=== PATIENT | male | born 1985 | race Caucasian/White ===

== ENCOUNTER 2018-08-22 20:40 | Observation (INO) ==
[2018-08-23] MEDS ORDERED: Acetaminophen 325 MG Tablet PO PRN (03:46)
[2018-08-23] MEDS ORDERED: Haloperidol Inj 5 MG/ML Ampul IV.PUSH PRN (03:46)
[2018-08-23] MEDS: LORazepam 1 MG Tablet PO PRN ×3 (04:31→17:36)
[2018-08-23 06:21] LABS: Chloride 104 meq/L (98-107); Potassium 3.7 meq/L (3.5-5.1); Sodium 140 meq/L (136-145)
[2018-08-23 06:23] LABS: Calcium 8.1 mg/dL (8.5-10.1)
[2018-08-23 06:24] LABS: Anion Gap 9 meq/L (5-15); Blood Urea Nitrogen 12 mg/dL (7-18); Carbon Dioxide 27.4 meq/L (21.0-32.0); Glucose,Random 89 mg/dL (74-106)
[2018-08-23 06:27] LABS: Glomerular Filtration Rate Greater Than 89 mL/min (>89)
[2018-08-23 06:31] LABS: Creatine Kinase 111 U/L (39-308)
[2018-08-23 06:42] LABS: Baso % (Auto) 0.7 % (0.0-2.0); Eos # (Auto) 0.1 th/mm3 (0.0-0.4); Eos % (Auto) 2.5 % (0.0-4.0); Hemoglobin 16.6 gm/dL (13.0-17.0); Lymph # (Auto) 1.3 th/mm3 (1.0-4.8); Lymph % (Auto) 28.7 % (9.0-44.0); Mean Corpuscular HGB Conc 35.3 % (32.0-36.0); Mean Corpuscular Hemoglobin 31.4 pg (27.0-34.0); Mean Corpuscular Volume 88.9 fL (80.0-100.0); Mean Platelet Volume 9.6 fL (7.0-11.0); Mono # (Auto) 0.4 th/mm3 (0.0-0.9); Mono % (Auto) 8.5 % (0.0-8.0); Neut # (Auto) 2.7 th/mm3 (1.8-7.7); Neut % (Auto) 59.6 % (16.0-70.0); Platelet Count 176 th/mm3 (150-450); Red Blood Count 5.29 mil/mm3 (4.50-5.90); Red Cell Distribution Width 13.3 % (11.6-17.2); White Blood Count 4.5 th/mm3 (4.0-11.0)
--- NOTE | 2018-08-23 06:47 | P.HP ---
History of Present Illness Primary Care Physician: UNKNOWN Chief Complaint: Alcohol withdrawal, chest pressure History of Present Illness: 32-year-old male with known history of hypertension, chronic alcohol abuse, tobacco abuse who presented to the hospital because of chest discomfort, possible near syncope. Patient states that he does drink alcohol on a daily basis at least 4-5 beers a day. He does smoke at least 1 pack of cigarettes a day. He states that he tried to quit drinking alcohol and smoking at the same time 2 days ago. Patient states that he was doing okay until yesterday when he started having a plethoric of symptoms to include chest pressure, lightheadedness, dizziness, severe fatigue, nausea, vomiting, shortness of breath, dyspnea. Patient indicates that approximate 9 AM yesterday morning he had an episode where he almost blacked out. He had profound fatigue where he went down to the ground on his knees and he did not have the strength to get back up. He thought it was because of his blood pressure was elevated and he could not go upstairs to get his blood pressure medication. Patient states that he got up and drink to [employer] in order to get through his symptoms. Because of his symptoms he decided to come to the emergency department for evaluation. Upon presentation emergency department patient was found to have mildly elevated blood pressure of 140/102. Patient had initial workup which was unremarkable. Patient denies any syncopal episode or seizure-like activity. However ER records indicates that noted that he possibly had a seizure at home. Patient does not indicate that he has tried to quit alcohol in the past. In reference to the patient's chest pressure, he indicates that it was located through his entire chest felt like a muscle cramp that he needed to work out. Lasted for approximately 10 minutes. Patient agreed with all the symptoms of nausea, vomiting, diaphoresis, shortness of breath, dyspnea, lightheadedness, dizziness. Because of his presentation the ER physician recommended that the patient be observed in the hospital to evaluate his chest pain and monitor for alcohol withdrawal. - Diagnosis (1) Chest pain (2) Alcohol withdrawal Review of Systems All other systems reviewed negative except as stated in HPI Constitutional: Reports body ache(s), Reports chills, Reports fatigue, Reports headache(s) Eyes: Reports blurry vision Cardiovascular: Reports chest pain, Reports shortness of breath Gastrointestinal: Reports nausea, Reports vomiting Musculoskeletal: Reports muscle cramps, Reports muscle weakness Neurologic: Reports dizziness, Reports fainting, Reports memory loss [facility] - History History Provided By: Patient - Medical History Medical History: Medical History (Last Updated 08/23/18 @ 06:52 by FACUNDO Adler) Hypertension (Acute) Alcohol abuse Tobacco abuse - Surgical History Surgical History: Surgical History (Last Updated 08/23/18 @ 06:52 by FACUNDO Adler) No history of previous surgery (Acute) Leg fracture, right - Family History Family History: Family History (Last Updated 08/23/18 @ 06:53 by FACUNDO Adler) Mother Family history of congenital heart disease Family history of diabetes mellitus Mother No problems noted. - Tobacco History Second Hand Smoke Exposure: No Tobacco Use In Past 30 Days: Yes (quit 3 days ago) Smoking Status: Former smoker Tobacco Type: Cigarettes Number of Pack Years (if former smoker): 20 (Quit smoking 2 days ago) - Alcohol History How Often Do You Have a Drink Containing Alcohol: 4 or more times a week - Substance Use History Substance History: Past History - Substance Use Type Marijuana Status: Sustained Remission - Travel History Recent Travel in the [place] Within the Last 8 Weeks: No Recent Travel Out of the Country Within the Last 8 Weeks: No Medications and Allergies Active Medications: Active Medications Acetaminophen (Tylenol) 650 mg PO Q4H PRN PRN Reason: Temp > 100.4 Amlodipine Besylate (Norvasc) 10 mg PO DAILY YANET Flumazenil (Romazecon Inj) 0.2 mg IV.PUSH Q1M PRN PRN Reason: OVERSEDATION Haloperidol Lactate (Haldol Inj) 1 mg IV.PUSH Q15M PRN PRN Reason: for severe agitation Lorazepam (Ativan Inj) 1 mg IV.PUSH Q4H PRN PRN Reason: for CIWA 8-10 Lorazepam (Ativan Inj) 2 mg IV.PUSH Q15M PRN PRN Reason: for CIWA > 20 Lorazepam (Ativan Inj) 2 mg IV.PUSH Q1H PRN PRN Reason: for CIWA 15-20 Lorazepam (Ativan Inj) 2 mg IV.PUSH Q2H PRN PRN Reason: for CIWA 11-14 Lorazepam (Ativan) 1 mg PO Q4H PRN PRN Reason: for CIWA 8-10 Last Admin: 08/23/18 04:31 Dose: 1 mg Lorazepam (Ativan) 2 mg PO Q2H PRN PRN Reason: for CIWA 08-29 Ondansetron HCl (Zofran Inj) 4 mg IV.PUSH Q6H PRN PRN Reason: NAUSEA OR VOMITING Allergies Allergy/AdvReac Type Severity Reaction Status Date / Time oyster extract [Oysters] Allergy Anaphylaxis Verified 08/22/18 20:55 ants Allergy Anaphylaxis Uncoded 07/03/18 19:43 Home Medications Medication Instructions Recorded Confirmed Type amlodipine 10 mg PO DAILY 08/23/18 08/23/18 History Exam Vital signs: Vital Signs 08/23/18 00:52 08/23/18 04:00 08/23/18 04:08 Temperature 96.7 F L 96.7 F L Pulse Rate 84 92 H 87 Respiratory Rate 18 18 Blood Pressure 120/78 121/84 Pulse Oximetry 93 L 94 L Intake & Output 08/22/18 08/22/18 08/23/18 06:59 18:59 06:59 Intake Total 240 / 240 Balance 240 / 240 Weight 88.7 kg Intake: Oral 240 / 240 Other: # Voids 2 Date of Last Bowel Movement 08/22/18 Weight On Admission 87.2 kg Narrative: GENERAL: Well-developed, well-nourished, in no acute distress. alert and orientated HEENT: Head is normocephalic without any lesions or masses noted. Facial features are symmetric. Eyes: Pupils equal round reactive to light. Extraocular muscles are intact. Conjunctivae were clear. Oropharyngeal: Pharynx without any erythema edema. Tongue is midline without deviation. Buccal mucosa is moist without any masses or lesions NECK: Supple without any masses. Trachea midline no deviation. No JVD, no bruits are appreciated CARDIAC: Regular rhythm, regular rate. S1/S2 are heard. No murmurs gallops or rubs. LUNGS: Clear to auscultation bilaterally. No wheeze, rhonchi or rales. No use of accessory muscles on inspiration or expiration. ABDOMEN: Soft, nontender. Nondistended. Bowel sounds heard in all 4 quadrants. No organomegaly or masses. Negative rebound, negative guarding EXTREMITIES: No edema, pulses are equal bilaterally. No cyanosis or clubbing NEUROLOGY: Mood and affect appear appropriate. Cranial nerves II through XII grossly intact. Muscle strength 5/5 in upper and lower extremities bilaterally. Deep tendon reflexes are 2+ in upper and lower extremities bilaterally. SKIN: Patient does have macular papular lesions noted on his left bicep, right axillary area, neck Results - Labs CBC & Chem 7: 08/23/18 05:52 08/23/18 05:52 Labs: Laboratory Results - last 24 hr 08/23/18 08/23/18 05:52 05:52 CBC w Diff Auto diff final WBC 4.5 RBC 5.29 Hgb 16.6 Hct 47.0 MCV 88.9 MCH 31.4 MCHC 35.3 RDW 13.3 Plt Count 176 MPV 9.6 Neut % (Auto) 59.6 Lymph % (Auto) 28.7 Crook % (Auto) 8.5 H Eos % (Auto) 2.5 Baso % (Auto) 0.7 Neut # (Auto) 2.7 Lymph # (Auto) 1.3 Crook # (Auto) 0.4 Eos # (Auto) 0.1 Baso # (Auto) 0.0 WBC Differential . Differential Comment . Sodium 140 Potassium 3.7 Chloride 104 Carbon Dioxide 27.4 Anion Gap 9 BUN 12 Creatinine 0.96 Estimated GFR Greater than 89 Random Glucose 89 Calcium 8.1 L Total Creatine Kinase 111 Troponin I Less than 0.02 L Caprini VTE Risk Assessment Caprini VTE Risk Assessment: No/Low Risk (score <= 1) Caprini Risk Assessment Model: Point Value = 1 Point Value = 2 Point Value = 3 Point Value = 5 Age 41-60 Minor surgery BMI > 25 kg/m2 Swollen legs Varicose veins or History of unexplained or recurrent spontaneous Oral contraceptives or hormone replacement Sepsis (< 1 month) Serious lung disease, including pneumonia (< 1 month) Abnormal pulmonary function Acute myocardial infarction Congestive heart failure (< 1 month) History of inflammatory bowel disease Medical patient at bed rest Age 61-74 Arthroscopic surgery Major open surgery (> 45 min) Laparoscopic surgery (> 45 min) Malignancy Confined to bed (> 72 hours) Immobilizing plaster cast Central venous access Age >= 75 History of VTE Family history of VTE Factor V Leiden Prothrombin [id number] Lupus anticoagulant Anticardiolipin antibodies Elevated serum homocysteine Heparin-induced thrombocytopenia Other congenital or acquired thrombophilia Stroke (< 1 month) Elective arthroplasty Hip, pelvis, or leg fracture Acute spinal cord injury (< 1 month) Prophylaxis Regimen: Total Risk Factor Score Risk Level Prophylaxis Regimen 0-1 Low Early ambulation 2 Moderate Order ONE of the following: *Sequential Compression Device (SCD) *Heparin 5000 units SQ BID 3-4 Higher Order ONE of the following medications: *Heparin 5000 units SQ TID *Enoxaparin/Lovenox 40 mg SQ daily (WT < 150 kg, CrCl > 30 mL/min) *Enoxaparin/Lovenox 30 mg SQ daily (WT < 150 kg, CrCl > 10-29 mL/min) *Enoxaparin/Lovenox 30 mg SQ BID (WT < 150 kg, CrCl > 30 mL/min) AND/OR *Sequential Compression Device (SCD) 5 or more Highest Order ONE of the following medications: *Heparin 5000 units SQ TID (Preferred with Epidurals) *Enoxaparin/Lovenox 40 mg SQ daily (WT < 150 kg, CrCl > 30 mL/min) *Enoxaparin/Lovenox 30 mg SQ daily (WT < 150 kg, CrCl > 10-29 mL/min) *Enoxaparin/Lovenox 30 mg SQ BID (WT < 150 kg, CrCl > 30 mL/min) AND *Sequential Compression Device (SCD) Assessment and Plan - Assessment (1) Chest pain Code(s): R07.9 - Chest pain, unspecified Status: Acute (2) Alcohol withdrawal Code(s): F10.239 - Alcohol dependence with withdrawal, unspecified Status: Acute - Plan Alcohol abuse with withdrawal symptoms -Patient presented with acute alcohol intoxication with blood alcohol level 78 -Patient started on CIWA protocol -Continue monitor withdrawal or seizures -Patient was counseled on cessation -[facility] be [facility] Chest pain, atypical -Patient with minimal risk factors to include hypertension, family history of heart disease -We will continue ruled patient out with serial cardiac enzymes and EKGs -Initial cardiac enzymes are negative, initial EKG shows normal sinus rhythm without any abnormalities -Start aspirin and nitroglycerin as needed Accelerated hypertension, improved -Continue home medications Chronic tobacco use -Counseled patient on cessation -Offered patient nicotine patch, however he declined DVT prevention -Sequential compression devices
[2018-08-23] MEDS: amLODIPine 10 MG Tablet PO SCH (08:52)
[2018-08-24] MEDS: chlordiazePOXIDE 25 MG Capsule PO SCH ×3 (08:29→21:50)
[2018-08-24] MEDS: amLODIPine 10 MG Tablet PO SCH (08:29)
--- NOTE | 2018-08-24 08:59 | P.PNIM ---
Subjective Interval history: 32-year-old male who is seen and examined today for follow-up on chest pain, alcohol withdrawal. Patient denies any recurrent chest pain. However he does still appear to be having rather significant withdrawal symptoms. Patient's CIWA score has been anywhere from 8-11 and still requiring Ativan. Vital signs are stable. Patient remains afebrile. Physical Exam Vital signs: Vital Signs 08/23/18 12:00 08/23/18 13:59 08/23/18 16:00 Temperature 97.2 F L 97.4 F L Pulse Rate 111 H 99 H 95 H Respiratory Rate 19 20 Blood Pressure 132/75 124/88 Pulse Oximetry 96 96 08/23/18 20:00 08/24/18 00:00 08/24/18 04:00 Temperature 96.9 F L 96.7 F L 96.5 F L Pulse Rate 100 H 99 H 112 H Respiratory Rate 20 20 20 Blood Pressure 128/90 140/92 H 128/83 Pulse Oximetry 94 L 95 95 Intake & Output 08/23/18 08/24/18 08/24/18 18:59 06:59 18:59 Intake Total 480 / 480 Output Total 900 / 900 Balance -420 / -420 Weight 88.5 kg Intake: Oral 480 / 480 Output: Urine 900 / 900 Other: Date of Last Bowel Movement 08/22/18 Narrative: GENERAL: Well-developed, well-nourished, in no acute distress. alert and orientated HEENT: Head is normocephalic without any lesions or masses noted. Facial features are symmetric. Eyes: Extraocular muscles are intact. Conjunctivae were clear. Patient with lateral nystagmus NECK: Supple without any masses. Trachea midline no deviation. No JVD, CARDIAC: Regular rhythm, regular rate. S1/S2 are heard. No murmurs gallops or rubs. LUNGS: Clear to auscultation bilaterally. No wheeze, rhonchi or rales. No use of accessory muscles on inspiration or expiration. ABDOMEN: Soft, nontender. Nondistended. Bowel sounds heard in all 4 quadrants. No organomegaly or masses. Negative rebound, negative guarding EXTREMITIES: No edema, pulses are equal bilaterally. No cyanosis or clubbing NEUROLOGY: Mood and affect appear appropriate. Cranial nerves II through XII grossly intact. Moving all extremities, speech is clear. 2+ full body tremors Results - Labs CBC & Chem 7: 08/23/18 05:52 08/23/18 05:52 Laboratory Results - last 24 hr 08/23/18 08/23/18 16:37 16:37 Total Creatine Kinase 84 Troponin I Less than 0.02 L Assessment and Plan - Assessment (1) Chest pain Code(s): R07.9 - Chest pain, unspecified Status: Inactive (2) Alcohol withdrawal Code(s): F10.239 - Alcohol dependence with withdrawal, unspecified Status: Inactive - Plan Alcohol abuse with withdrawal symptoms -Patient presented with acute alcohol intoxication with blood alcohol level 78 -Continue [facility] protocol -Start Librium 25 mg p.o. every 8 hours -Continue monitor withdrawal or seizures -Patient was counseled on cessation -Case management will be consulted to supply patient with David talamantes Chest pain, atypical -Patient with minimal risk factors to include hypertension, family history of heart disease -Patient has been ruled out for acute coronary event with serial cardiac enzymes that have remained negative -Serial EKGs reviewed by myself shows sinus rhythm without any changes -Continue aspirin and nitroglycerin as needed Accelerated hypertension, improved -Home medication amlodipine 10 mg daily were resumed Chronic tobacco use -Counseled patient on cessation -Offered patient nicotine patch, however he declined DVT prevention -Sequential compression devices Discharge Planning: Discharge planning in 48-72 hours depending on patient's response to treatment
[2018-08-25] MEDS: chlordiazePOXIDE 25 MG Capsule PO SCH ×2 (05:57→14:10)
[2018-08-25] MEDS: amLODIPine 10 MG Tablet PO SCH (08:58)
--- NOTE | 2018-08-25 10:01 | P.PNIM ---
Subjective Interval history: 32-year-old male was seen and examined for follow-up on alcohol withdrawal, chest pain. Patient no longer experiencing any chest discomfort. Patient states that he is feeling much better from the alcohol withdrawals. He obviously has a much better appearance to them today. Vital signs are stable. Patient remains afebrile Physical Exam Vital signs: Vital Signs 08/24/18 11:47 08/24/18 16:00 08/24/18 20:00 Temperature 96.7 F L 98.6 F 97.2 F L Pulse Rate 108 H 112 H 94 H Respiratory Rate 24 17 20 Blood Pressure 135/97 H 136/92 H 136/97 H Pulse Oximetry 97 95 96 08/25/18 00:00 08/25/18 04:00 Temperature 96.7 F L 96.2 F L Pulse Rate 72 87 Respiratory Rate 20 20 Blood Pressure 110/73 133/85 Pulse Oximetry 96 95 Intake & Output 08/24/18 08/25/18 08/25/18 18:59 06:59 18:59 Intake Total 240 / 240 480 / 480 Balance 240 / 240 480 / 480 Weight 88.7 kg Intake: Oral 240 / 240 480 / 480 Other: # Voids 4 Date of Last Bowel Movement 08/22/18 Narrative: GENERAL: Well-developed, well-nourished, in no acute distress. alert and orientated HEENT: Head is normocephalic without any lesions or masses noted. Facial features are symmetric. Eyes: Extraocular muscles are intact. Conjunctivae were clear. No nystagmus are appreciated NECK: Supple without any masses. Trachea midline no deviation. No JVD, CARDIAC: Regular rhythm, regular rate. S1/S2 are heard. No murmurs gallops or rubs. LUNGS: Clear to auscultation bilaterally. No wheeze, rhonchi or rales. No use of accessory muscles on inspiration or expiration. ABDOMEN: Soft, nontender. Nondistended. Bowel sounds heard in all 4 quadrants. No organomegaly or masses. Negative rebound, negative guarding EXTREMITIES: No edema, pulses are equal bilaterally. No cyanosis or clubbing NEUROLOGY: Mood and affect appear appropriate. Cranial nerves II through XII grossly intact. Moving all extremities, speech is clear. Patient no longer experiencing any tremors Results - Labs CBC & Chem 7: 08/23/18 05:52 08/23/18 05:52 Assessment and Plan - Assessment (1) Chest pain Code(s): R07.9 - Chest pain, unspecified Status: Inactive (2) Alcohol withdrawal Code(s): F10.239 - Alcohol dependence with withdrawal, unspecified Status: Inactive - Plan Alcohol abuse with withdrawal symptoms, improving -Patient presented with acute alcohol intoxication with blood alcohol level 78 -Continue CIWA protocol, patient only with CIWA score 4-5 -Continue Librium 25 mg p.o. every 8 hours -Continue monitor withdrawal or seizures -Patient was counseled on cessation -Case management will be consulted to supply patient with David talamantes Chest pain, atypical -Patient with minimal risk factors to include hypertension, family history of heart disease -Patient has been ruled out for acute coronary event with serial cardiac enzymes that have remained negative -Serial EKGs reviewed by myself shows sinus rhythm without any changes -Continue aspirin and nitroglycerin as needed Accelerated hypertension, improved -Home medication amlodipine 10 mg daily were resumed Chronic tobacco use -Counseled patient on cessation -Offered patient nicotine patch, however he declined DVT prevention -Sequential compression devices Discharge Planning: Discharge planning within 24 hours if patient continues to improve clinically
--- NOTE | 2018-08-25 16:48 | P.DS ---
Date of admission: 08/23/18 00:35 Primary care physician: UNKNOWN Attending physician on discharge: Mabel Ulrich Anticipated date of discharge: 08/25/18 Brief History from admission: 32-year-old male with known history of hypertension, chronic alcohol abuse, tobacco abuse who presented to the hospital because of chest discomfort, possible near syncope. Patient states that he does drink alcohol on a daily basis at least 4-5 beers a day. He does smoke at least 1 pack of cigarettes a day. He states that he tried to quit drinking alcohol and smoking at the same time 2 days ago. Patient states that he was doing okay until yesterday when he started having a plethoric of symptoms to include chest pressure, lightheadedness, dizziness, severe fatigue, nausea, vomiting, shortness of breath, dyspnea. Patient indicates that approximate 9 AM yesterday morning he had an episode where he almost blacked out. He had profound fatigue where he went down to the ground on his knees and he did not have the strength to get back up. He thought it was because of his blood pressure was elevated and he could not go upstairs to get his blood pressure medication. Patient states that he got up and drink to [employer] in order to get through his symptoms. Because of his symptoms he decided to come to the emergency department for evaluation. Upon presentation emergency department patient was found to have mildly elevated blood pressure of 140/102. Patient had initial workup which was unremarkable. Patient denies any syncopal episode or seizure-like activity. However ER records indicates that noted that he possibly had a seizure at home. Patient does not indicate that he has tried to quit alcohol in the past. In reference to the patient's chest pressure, he indicates that it was located through his entire chest felt like a muscle cramp that he needed to work out. Lasted for approximately 10 minutes. Patient agreed with all the symptoms of nausea, vomiting, diaphoresis, shortness of breath, dyspnea, lightheadedness, dizziness. Because of his presentation the ER physician recommended that the patient be observed in the hospital to evaluate his chest pain and monitor for alcohol withdrawal. DS: Diagnosis - Discharge Diagnosis (1) Chest pain Status: Inactive (2) Alcohol withdrawal Status: Inactive DS: Medications - Discharge Medications Prescriptions: chlordiazepoxide HCl 5 mg PO DIRECTED #80 cap DS: Summary Hospital Course: 32-year-old male with known history of alcohol abuse, hypertension, tobacco abuse who presented to the hospital for alcohol withdrawal, chest pain. Patient states that he been trying to get off alcohol and was without alcohol for proxy 2 days he got sudden onset of fatigue, weakness where he dropped down to the ground he could not get back up. He thought this was secondary to withdrawal. He started developing chest pain with all the associated symptoms of nausea, vomiting, lightheadedness, dizziness, shortness of breath, dyspnea. Patient drank to [employer] and came to the emergency department for evaluation. Patient had workup done and found to have significant withdrawal symptoms. Patient was admitted to evaluate for his chest pain and for alcohol withdrawal. Patient did have workup done with serial cardiac enzymes and EKGs without any significant findings. Acute coronary syndrome was ruled out. Patient does have history of hypertension patient did have accelerated hypertension on presentation. Patient was started on amlodipine 10 mg daily which he takes at home with improvement of the blood pressure. Patient was started on CIWA score which for the first couple days he did have significant scores of 8-11. Patient did require Ativan for symptoms. Patient was started on Librium 25 mg 3 times daily with significant improvement of his withdrawal symptoms and presently he is with a CIWA score of 0. Patient is clinically improved. He was counseled significantly on alcohol withdrawal. Patient was given information for [facility]. I discussed with him that he needed to follow-up with AA to maintain abstinence from alcohol. Patient does understand and agree. Patient clinically stable at this time. He is in agreement on going home. We will plan discharge in stable condition. - Time Spent with Patient Total time spent providing and/or coordinating discharge services: Greater than 30 minutes - Quality: VTE Deep Vein Thrombosis/Pulmonary Embolism Present on Admission: No Exam Vital signs: Vital Signs 08/24/18 20:00 08/25/18 00:00 08/25/18 04:00 Temperature 97.2 F L 96.7 F L 96.2 F L Pulse Rate 94 H 72 87 Respiratory Rate 20 20 20 Blood Pressure 136/97 H 110/73 133/85 Pulse Oximetry 96 96 95 08/25/18 08:00 08/25/18 12:00 Temperature 97.7 F 97.8 F Pulse Rate 63 108 H Respiratory Rate 19 19 Blood Pressure 125/89 146/84 H Pulse Oximetry 97 99 Intake & Output 08/24/18 08/25/18 08/25/18 18:59 06:59 18:59 Intake Total 240 / 240 480 / 480 960 / 960 Output Total 702 / 702 Balance 240 / 240 480 / 480 258 / 258 Weight 88.7 kg Intake: Oral 240 / 240 480 / 480 960 / 960 Output: Urine 700 / 700 Stool 2 / 2 Other: # Voids 4 Date of Last Bowel Movement 08/22/18 08/25/18 Narrative: GENERAL: Well-developed, well-nourished, in no acute distress. alert and orientated HEENT: Head is normocephalic without any lesions or masses noted. Facial features are symmetric. Eyes: Extraocular muscles are intact. Conjunctivae were clear. No nystagmus are appreciated NECK: Supple without any masses. Trachea midline no deviation. No JVD, CARDIAC: Regular rhythm, regular rate. S1/S2 are heard. No murmurs gallops or rubs. LUNGS: Clear to auscultation bilaterally. No wheeze, rhonchi or rales. No use of accessory muscles on inspiration or expiration. ABDOMEN: Soft, nontender. Nondistended. Bowel sounds heard in all 4 quadrants. No organomegaly or masses. Negative rebound, negative guarding EXTREMITIES: No edema, pulses are equal bilaterally. No cyanosis or clubbing NEUROLOGY: Mood and affect appear appropriate. Cranial nerves II through XII grossly intact. Moving all extremities, speech is clear. Patient no longer experiencing any tremors Results Procedures completed during hospitalization: None Discharge Plan - Discharge Disposition Patient Disposition: 01 Discharge Home - Discharge Condition Condition: Stable - Discharge Order Discharge Orders: Discharge Order (Routine); Ordered 08/25/18 Ordered By: Kapil Calvillo - Discharge Details Anticipated Discharge Date: 08/25/18 - Physicians Team Primary Care Provider: UNKNOWN, Attending Provider: Mabel Ulrich - Rxs /Orders / Referrals /Forms Prescriptions: New chlordiazepoxide HCl 5 mg Capsule 5 mg PO DIRECTED Qty: 80 RF: 0 Continue amlodipine 10 mg Tablet 10 mg PO DAILY Referrals: UNKNOWN, [Primary Care Provider] - See Instructions - Discharge Instructions Patient Printed Instructions: Chlordiazepoxide (By mouth), Amlodipine (By mouth ), Abuse of Alcohol (DC), Abuse of Alcohol (GEN), Alcohol Withdrawal (GEN) - Post Discharge Care Plan Care Plan Goals: Your Health Problems: Goals to Promote Your Health: * To prevent worsening of your condition * To maintain your health at the optimal level Directions to Meet Your Goals: * Take your medications as prescribed * Follow your dietary instruction * Follow activity as directed * Keep your appointments as scheduled * Take your immunizations and boosters as scheduled * If your symptoms worsen call your PCP * If no PCP go to Urgent Care or Emergency Room Smoking is dangerous to your health. Avoid second hand smoke. You may reach the 24-hour crisis hotline for domestic abuse at .
[2018-08-25 17:07] VITALS: BP 134/79; PULSE 98; RESP 20; TEMP 97.5; O2SAT 96
== END 2018-08-25 17:20 | disposition home or self-care (01) ==
LOC: PH3 08-23 00:25 → PHED 08-23 00:25
PROVIDERS: ADMIT Hospitalist; ATTEND Hospitalist